=== PATIENT | male | born 1980 | race Caucasian/White ===

== ENCOUNTER 2018-06-10 18:03 | Inpatient (IN) | payer SELFPAY ==
[~2018-06-10] VITALS: Ht 182.9 cm; Wt 139.9 kg
[2018-06-10] MEDS ORDERED: ONDANSETRON HCL 4MG/2ML INJ IV STA (18:52)
[2018-06-10] MEDS ORDERED: KETOROLAC 30MG/ML VIAL IV STA (18:52)
[2018-06-10] MEDS ORDERED: FAMOTIDINE 20MG/2ML VIAL IV STA (18:52)
[2018-06-10] MEDS ORDERED: SODIUM CHLORIDE 0.9% 1,000 ML IV ONE (18:52)
[2018-06-10] MEDS ORDERED: MORPHINE SULFATE 10 MG/ML CPJ IV ONE (19:00)
[2018-06-10 19:20] LABS: BASOPHILS % 0.5 % (0.0-2.0); EOSINOPHILS % 1.1 % (0.0-5.0); HEMOGLOBIN. 14.2 g/dL (14.0-18.0); LYMPHOCYTES % 19.2 % (20.0-50.0); MEAN CORPUSCULAR HEMOGLOBIN 29.8 pg (28.0-32.0); MEAN CORPUSCULAR VOLUME 85.9 fL (80.0-94.0); MEAN PLATELET VOLUME 9.9 fl (7.4-10.4); MONOCYTES % 9.3 % (2.0-8.0); NEUTROPHILS % 69.9 % (40.0-76.0); PLATELET 185 x1000/uL (130-400); RED BLOOD CELL COUNT 4.78 mill/uL (4.7-6.1); RED CELL DISTRIBUTION WIDTH 13.9 % (11.6-14.6)
[2018-06-10 19:23] LABS: CHLORIDE 108 mEq/L (98-107)
[2018-06-10 19:25] LABS: PROTHROMBIN TIME 10.2 sec (9.1-11.1)
[2018-06-10 19:28] LABS: ETHANOL BLOOD < 10 mg/dL
[2018-06-10 19:29] LABS: CLARITY URINE CLEAR (CLEAR); COLOR URINE DARK YELLOW (YELLOW); KETONES URINE TRACE (NEGATIVE); LEUKOCYTE ESTERASE URINE NEGATIVE (NEGATIVE); NITRITE URINE NEGATIVE (NEGATIVE); OCCULT BLOOD URINE TRACE (NEGATIVE); PH URINE 5.5 (4.5-8.0); PROTEIN URINE TRACE (NEGATIVE); SPECIFIC GRAVITY URINE 1.034 (1.005-1.030)
[2018-06-10] MEDS ORDERED: METRONIDAZOLE 500 MG PREMIX 100 ML IV ONE (21:30)
[2018-06-10] MEDS ORDERED: PIPERACILLIN/TAZ 3.375G PREMIX 50 ML IV ONE (21:30)
[2018-06-10] MEDS ORDERED: OLME40TA11 MT (23:22)
[2018-06-10 23:41] VITALS: BP 123/77
[2018-06-11] VITALS: BP 123/77
[2018-06-11] MEDS ORDERED: KETOROLAC 30MG/ML VIAL IV PRN
[2018-06-11] MEDS ORDERED: ACETAMINOPHEN 325MG TABLET PO PRN
[2018-06-11] MEDS ORDERED: CLONIDINE 0.1MG TABLET PO PRN
[2018-06-11] MEDS ORDERED: ONDANSETRON HCL 4MG/2ML INJ IV PRN
[2018-06-11] MEDS ORDERED: TRIM300C23 MT (00:11)
[2018-06-11] MEDS ORDERED: DEXT 5%/0.45% NACL KCL 40MEQ/L 1,000 ML IV SCH (02:00)
[2018-06-11 04:00] VITALS: BP 108/52
[2018-06-11] MEDS ORDERED: METRONIDAZOLE 500 MG PREMIX 100 ML IV SCH ×2 (06:00)
[2018-06-11] MEDS ORDERED: AMLO2.5T45 MT (06:35)
[2018-06-11] MEDS ORDERED: [UNRECOGNIZED DRUG - OTHER] (06:35)
[2018-06-11 07:31] LABS: BASOPHILS % 0.5 % (0.0-2.0); EOSINOPHILS % 2.2 % (0.0-5.0); HEMATOCRIT. 38.3 % (42.0-52.0); HEMOGLOBIN. 13.1 g/dL (14.0-18.0); MEAN CORPUSCULAR HEMOGLOBIN 29.5 pg (28.0-32.0); MEAN CORPUSCULAR VOLUME 86.4 fL (80.0-94.0); MEAN PLATELET VOLUME 9.9 fl (7.4-10.4); NEUTROPHILS % 59.3 % (40.0-76.0); PLATELET 166 x1000/uL (130-400); RED BLOOD CELL COUNT 4.43 mill/uL (4.7-6.1); RED CELL DISTRIBUTION WIDTH 13.5 % (11.6-14.6)
[2018-06-11] MEDS ORDERED: PIPERACILLIN/TAZ 3.375G PREMIX 50 ML IV SCH ×2 (08:00)
[2018-06-11] MEDS ORDERED: FAMOTIDINE 20MG/2ML VIAL IV SCH (09:00)
[2018-06-11 09:26] VITALS: BP 133/81
[2018-06-11 09:53] LABS: CHLORIDE 110 mEq/L (98-107)
== END 2018-06-11 10:05 | disposition home or self-care (01) | DRG 244 ==
LOC: ER 18:03 → 8WST 21:28 → ENRESERV 21:49
PROVIDERS: ADMIT Internal Medicine; ATTEND Internal Medicine
DX: K57.32 Diverticulitis of large intestine without perforation or abscess without bleeding (principal); I10 Essential (primary) hypertension; K52.9 Noninfective gastroenteritis and colitis, unspecified; Z79.899 Other long term (current) drug therapy
CPT/HCPCS: 36415; 74176; 83605; 83735; 84100; 84484; 96361; 96374; 96375; 99285; G0482; J1885; J2405; J2543; J3490; J7030